=== PATIENT | female | born 1950 ===

== ENCOUNTER 2019-05-26 05:58 | Day surgery (SDC) | payer OTHER ==
[~2019-05-26 05:58] MED LIST: ACETAMINOOPHEN-1 TAB PO; AVANDAMET 4 MG/1 TA1 PO; AVANDARYL 4 MG-1 TA1 PO; CIPRO500 MG PO; COZAAR100 MG PO; CRESTOR20 MG PO; ECOTRIN81 MG PO; GABAPENTIN100 MG PO; LANTUS100 U/ML SQ; SYNTHROID100 MCG PO; TRICOR145 MG PO; URETRON DS1 TAB PO; ZOCOR20 MG PO
[2019-05-26] MEDS ORDERED: ALEVE220 M1 PO (11:41)
[2019-05-26] MEDS ORDERED: DUI500 PO (11:41)
[2019-05-26] MEDS ORDERED: PERCOCET 5-3251 EACH PO (11:41)
== END 2019-05-26 18:00 | disposition home or self-care (01) ==
LOC: CIR.AMB 05:58
DX: S82.841A Displaced bimalleolar fracture of right lower leg, initial encounter for closed fracture (principal); S93.421A Sprain of deltoid ligament of right ankle, initial encounter; S86.891A Other injury of other muscle(s) and tendon(s) at lower leg level, right leg, initial encounter; M81.0 Age-related osteoporosis without current pathological fracture
CPT/HCPCS: 27814; 20902; 27695; C1776